=== PATIENT | female | born 1965 | race Caucasian/White ===

== ENCOUNTER 2019-08-24 14:29 | Outpatient (CLI) | payer OTHER ==
--- NOTE | 2019-08-24 13:19 | SLEEP CARE CONSULTATION ---
Information from patient questionnaire entered by Flores Aiken. I have reviewed and concur with the information entered by Flores Aiken. This document represents the service I personally performed and the decisions made by me, Kathia Richardson MD, [facility]. History of Present Illness Service Date and Time: 08/24/2019 1300 Reason for Visit: New patient, Previously diagnosed sleep apnea (very severe - AHI - 81.3 IN 2006), sleep apnea on CPAP therapy (BIPAP from [facility]), Re-establ [facility] Chief Complaint: reports: Unrefreshed sleep (sometimes), Snoring, Excessive daytime sleepiness (sometimes), Observed pauses in breathing, Fatigue (sometimes), Frequent awakenings at night (sometimes) Duration of Symptoms: 13 years Usual bedtime: 9-10 pm Time it takes to fall asleep: varies Snores at night: Yes Observed to quit breathing while asleep: Yes Sleeps alone due to snoring: No Number of times waking at night: unsure Reasons for waking at night: reports: Choking (sometimes), Snoring (sometimes), Bathroom (sometimes), Other (see things on the nguyễn) Toss, Turn, or Twitch while sleeping: Yes Recalls having dreams: Yes (sometimes) Usually gets out of bed at: 6-8 am Feels refreshed in the morning: Yes (mostly) Morning headache: No (occasionally) Sleepy or fatigued during the day: Yes (sometimes) Ever fallen asleep while driving: No Takes day naps: No (rarely) Dreams during day naps: No Prior sleep studies: Yes Year and Where: 2006 [facility] Additional HPI information: I had the pleasure of seeing Ms. Escalera today regarding obstructive sleep apnea-hypopnea. As you know, she is a 54 year old lady who was diagnosed with the sleep-disordered breathing in here in 2006. The AHI was 81.3. She was prescribed a BiPAP device set at 21/17 cmH2O. She continues to use every night and all night. The compliance data show usage in 179 out of the past 180 nights, averaging 8.5 hours a night. The residual AHI is 3.0, and average air leak is 13.3 L/minute. She wears a ResMed nasal mask. The current machine is her second one and it is older than 5 years. She gets his supplies from [facility]. She finds the treatment very beneficial. Her [place] Sleepiness Scale score is still 16. She lost 8 lbs since her sleep study 13 years ago. - Parasomnia Symptoms Ever been unable to move upon waking from sleep: No Ever felt weak in the knees when startled or emotional: Yes Bothered by creepy, crawly, restless sensations in legs: No Problems with memory or concentration: Yes (sometimes) CPAP Compliance Data - Data Reviewed with Patient Average duration of nightly device use: 8.5 Compliance rate %: 99 (180 days) Current pressure setting (cmH2O): 21/17 Average residual AHI: 3.0 Subjective Initial [place] Sleepiness Scale score: 15 (in 2006) Current [place] Sleepiness Scale score: 16 Past Medical History Past Medical History: reports: Hypertension, Depression Social History The patient's occupation is retired. Patient is and lives in [place]. Have you smoked in the past 12 months: No Alcohol use: Yes Alcohol amount and frequency: 1-2 drinks maybe once a week Caffeine use: Yes Caffeine amount and frequency: 2 - 3 cups of coffee in the morning Family History Family history of sleep disordered breathing: No Allergies and Home Medications Drug allergies reviewed: Yes Home medication list reviewed: Yes Review of Systems Review of systems same as previous: Yes Cardiovascular: reports: high blood pressure Urinary: reports: impotence (sometimes) Psychiatric: reports: depression Ear/Nose/Throat: reports: nasal congestion (occasional), nose bleeds (not recently), tonsillectomy, wisdom teeth removed Immunologic: reports: sneezing, other (clear discharge from nose in the morning) Impression and Plan IMPRESSION: 1. Obstructive Sleep Apnea-Hypopnea Syndrome, very severe, as previously diagnosed. The patient has had good treatment compliance. The current pressure setting appears effective and comfortable. The patient experiences improvement on the treatment. Because her BiPAP is now older than the useful life of 5 years, I will order the patient a new one and set it at 21/16 cmH2O. In the future, we may consider lowering the pressure to help reduce air leak. Plan: 1. Prescription made for a new BiPAP, heated humidifier, and related supplies. 2. Try newer nasal masks 3. Return for follow up after one month on the new BiPAP. Video Type: [place] Patient Location: Home Location of Provider: Home Patient agrees and consents to this telehealth visit type: Yes Patient agrees to have their insurance billed: Yes Time Spent with Patient (minutes): 12
== END 2019-08-24 14:30 | disposition home or self-care (01) ==
LOC: SC 14:29
PROVIDERS: ATTEND Internal Medicine Pulmonary Disease
DX: G47.33 Obstructive sleep apnea (adult) (pediatric) (principal)

== ENCOUNTER 2020-12-09 10:34 | Outpatient (CLI) | payer OTHER ==
--- NOTE | 2020-12-09 11:30 | SLEEP CARE CONSULTATION ---
Information from patient questionnaire entered by Flores Aiken. I have reviewed and concur with the information entered by Flores Aiken. This document represents the service I personally performed and the decisions made by me, Faith Guerra ARNP. History of Present Illness Service Date and Time: 12/09/2020 1034 Previous diagnosis: Very Severe, Obstructive Sleep Apnea-Hypopnea Syndrome AHI: 81.3 (in 2006) Reason for follow up: annual (last seen 08/2019) Equipment type: BiPAP Equipment obtained from: [employer] (getting supplies as needed) Mask style: Nasal Mask brand: Resmed Backup mask available: Yes (old mask) Last cushion change: 1 month Prior sleep studies: Yes Year and Where: 2006 - [facility] Type of Sleep Study: Polysomnography HPI additional information: RALPH AMBROSIO was diagnosed to have very severe, AHI 81.3, obstructive sleep apnea-hypopnea syndrome and returned today for BIPAP therapy annual follow-up. CPAP Compliance Data - Data Reviewed with Patient Average duration of nightly device use: 8 hr 16 min Compliance rate %: 99 (180 days) Current pressure setting (cmH2O): Average residual AHI: 2.2 Subjective Patient concerns: reports: mask discomfort, air blowing in eyes, mask leak noise, nasal congestion, dry mouth, nose, throat (dry mouth), other (snore while using device, I like to sleep on my face/stomache and cannot do this with current mask.). denies: aerophagia, condensation in mask/hose, epistaxis Observed to snore while using device: No Current pressure setting perceived as: comfortable On therapy, patient: reports: sleeping better, awakening more refreshed, being more awake and alert during the day, more rested overall. denies: drowsiness while driving Initial [place] Sleepiness Scale score: 15 (in 2006) Current [place] Sleepiness Scale score: 15 Allergies and Home Medications Home medication list reviewed: Yes Allergy and home medication list: Sertraline 75 mg Lisinopril ?, not sure of name Review of Systems Review of systems same as previous: Yes (no changes) Physical Exam Heart Rate: 62 O2 Saturation: 98 Height: 5 ft 7 in Weight: 222 lb Body Mass Index: 34.7 BMI Classification: Obese Impression and Plan 1. Obstructive Sleep Apnea-Hypopnea Syndrome, very severe, with excellent treatment compliance and good apnea control. On BIPAP therapy, the patient has better sleep quality and is more rested overall. Patient sleeps on her stomach and face which causes a lot of mask leaking. Mask leaks can be reduced by washing mask daily and changing mask cushions more frequently to improve mask seal and comfort. Patient would like a different style of mask that does not stick out as much to be more comfortable. I showed her different styles and she thinks she might like to try a full face style because she does get some mouth dryness when she sleeps with her mouth open. She used to have a chinstrap but has lost it and has not been able to get any replacements. I will order a mask refitting as well as a chinstrap so she might find something a bit more comfortable and easier to use with her current position for sleeping. Oral dryness can be reduced by adjusting humidity setting higher or heated hose lower or by adjusting both settings. Patient's apnea severity and rationale for treatment to reduce apnea, improve sleep quality and reduce cardiovascular and cerebrovascular events was reviewed. I also reviewed the benefit of consistent device use of BIPAP for hypertension and depression. * Continue auto BIPAP pressure at 21/17 cmH2O * Mask refitting * obtain chinstrap to use with nasal cushion mask * Notify me if snoring with mask or feeling that the pressure is too much or too little * Attempt to lose weight * Call this office if any problems using BIPAP * Return for follow up in 1 year, or sooner if concerns arise Counseling Topics: Spare mask, Weight loss health impact Visit Type: In Office Time Spent with Patient (minutes): 21 Provider Statement: I spent 100% of the Face to Face Visit with the patient with greater than 50% spent counseling the patient and coordination of care.
== END 2020-12-09 10:35 | disposition home or self-care (01) ==
LOC: SC 10:34
PROVIDERS: ATTEND Nurse Practitioner Family
DX: G47.33 Obstructive sleep apnea (adult) (pediatric) (principal); E66.9 Obesity, unspecified; Z68.34 Body mass index [BMI] 34.0-34.9, adult
CPT/HCPCS: 99212; 99213

== ENCOUNTER 2022-02-06 09:28 | Outpatient (CLI) | payer OTHER ==
[2022-02-06 10:14] VITALS: BP 124/72
--- NOTE | 2022-02-06 10:14 | SLEEP CARE CONSULTATION ---
Information from patient questionnaire entered by Kaur Matta. I have reviewed and concur with the information entered by Kaur Matta. This document represents the service I personally performed and the decisions made by me, Faith Guerra ARNP. History of Present Illness Service Date and Time: 02/06/2022927 Previous diagnosis: Very Severe, Obstructive Sleep Apnea-Hypopnea Syndrome AHI: 81.3 (in 2006) Reason for follow up: annual (LAST SEEN 12-27) Equipment type: BiPAP (RESMED) Equipment obtained from: [employer] (would like change to [facility]) Mask style: Full face Mask brand: Resmed (Airfit [id number]) Backup mask available: Yes (old mask) Last cushion change: today Prior sleep studies: Yes Year and Where: 2006 - [facility] Type of Sleep Study: Polysomnography HPI additional information: RALPH AMBROSIO was diagnosed to have very severe, AHI 81.3, obstructive sleep apnea-hypopnea syndrome and returned today for CPAP therapy annual follow-up. Sleep Study - Results Type of Sleep Study: Polysomnography [facility] Yes [facility] CPAP Compliance Data - Data Reviewed with Patient Average duration of nightly device use: 8 hours 16 minutes Compliance rate %: 99 (180/180 days used) Current pressure setting (cmH2O): Average residual AHI: 2.2 Central apnea: 0.6 Obstructive apnea: 0.8 Subjective Patient concerns: reports: mask leak noise (noted by her ). denies: aerophagia, mask discomfort, air blowing in eyes, condensation in mask/hose, nasal congestion, dry mouth, nose, throat, epistaxis Observed to snore while using device: No Current pressure setting perceived as: comfortable On therapy, patient: reports: sleeping better, awakening more refreshed, being more awake and alert during the day, more rested overall. denies: drowsiness while driving Initial [place] Sleepiness Scale score: 15 (in 2006) Current [place] Sleepiness Scale score: 5 (02/06/2022) Allergies and Home Medications Known drug allergies: No Drug allergies reviewed: Yes (NKDA) Home medication list reviewed: Yes (no changes) Review of Systems Review of systems same as previous: Yes (no changes) Physical Exam Vital signs obtained and entered by: KAUR Balderas MA Blood Pressure: 124/72 (left arm) Cuff size: regular Heart Rate: 62 O2 Saturation: 97 Height: 5 ft 7 in Weight: 223 lb 3.2 oz Body Mass Index: 34.9 BMI Classification: Obese Impression and Plan 1. Obstructive Sleep Apnea-Hypopnea Syndrome, very severe, with good treatment compliance and good apnea control. On BIPAP therapy, the patient has better sleep quality and is more rested overall. Patient would like to try [facility] instead of [facility] for her DME. She states she did put in a request at [facility] but has not received noticed that it is changed yet. A DWO prescription will then be made. Patient advised to contact this office if further supply problems. Patient states the pressure is comfortable but complains that the pressure might be too high because it causes noise from her mask. She would not mind trying a lowered pressure. I will adjust pressure to 20/16 centimeters H2O to see if this will reduce mask leak noises. Patient will let me know if it is uncomfortable for further adjustment as needed. Patient has significant improvement of their sleep apnea and are satisfied with current CPAP therapy. Patient denies problems with oral dryness, nasal congestion, epistaxis, skin irritation or aerophagia. Patient's apnea severity and rationale for treatment to reduce apnea, improve sleep quality and reduce cardiovascular and cerebrovascular events was reviewed. I also reviewed the benefit of consistent device use of BIPAP for hypertension and depression. 2. Obesity, unspecified. Currently patients BMI is 34.9. Obesity increases the risk of apnea, BIPAP pressure requirements and overall health risks especially cardiovascular and diabetes. Thus patient is advised to lose weight. Weight loss can be done with reducing portion size, reducing refined foods and balancing content with vegetables, fruit and whole grain foods. In addition, patient encouraged to get regular exercise. * Change BIPAP pressure to 20/16 cmH2O * Transfer DME * Update supplies * Notify me if snoring with mask or feeling that the pressure is too much or too little * Attempt to lose weight * Call this office if any problems using BIPAP * Return for follow up in 1 year, or sooner if concerns arise Counseling Topics: Spare mask, Weight loss health impact Visit Type: In Office Time Spent with Patient (minutes): 20 Provider Statement: I spent 100% of the Face to Face Visit with the patient with greater than 50% spent counseling the patient and coordination of care.
== END 2022-02-06 09:29 | disposition home or self-care (01) ==
LOC: SC 09:28
PROVIDERS: ATTEND Nurse Practitioner Family
DX: G47.33 Obstructive sleep apnea (adult) (pediatric) (principal); E66.9 Obesity, unspecified; Z68.34 Body mass index [BMI] 34.0-34.9, adult
CPT/HCPCS: 99212; 99213